=== PATIENT | female | born 1985 | race Caucasian/White ===

== ENCOUNTER 2019-04-02 10:53 | Emergency (ER) | payer SELFPAY ==
[2019-04-02] MEDS ORDERED: ONDANSETRON HCL INJ/PF 4 MG/2 ML SDV IV ONE (11:35)
[2019-04-02] MEDS ORDERED: NORMAL SALINE 1000 ML 1,000 ML IV ONE (11:35)
--- NOTE | 2019-04-02 11:38 | ER Document Report ---
ED Medical Screen (RME) - General Chief Complaint: Vomiting/Diarrhea Stated Complaint: NAUSEA/VOMITING Time Seen by Provider: 04/02/19 11:25 Mode of Arrival: Ambulatory Information source: Patient Notes: HPI: 33-year-old female sent here by the [facility] for concern of elevated blood pressure and tachycardia for the last day. Patient states she has chronic vomiting and diarrhea and stomach pain. She also states she has chronic headaches. Her symptoms are worse since Monday when she was admitted there for detox for alcohol, Percocet, Vicodin, and Valium. She states she also has the shakes. She denies prior history of DTs or alcohol withdrawal seizures. She does take trazodone, BuSpar, Neurontin. She states she has hypothyroidism depression anemia. She denies any chest pain. She states her blood pressures were running 160s and 140 systolic so they sent her to have an EKG, labs and fluids.She also states about 4 days ago she punched something several times with bilateral fists and requests bilateral hand x-rays. no numbness or tingling. No pain anywhere else. ROS neg to include 10 systems, unless mentioned in the hpi. PE:>>>> PHYSICAL_EXAM: GENERAL_APPEARANCE: well_nourished, alert, cooperative, no_acute_distress, no_obvious_discomfort. pleasant, thin young white female who appears slightly older than stated age, smiling, speaking in full sentences, in no sign of pain or resp distress, VITALS: reviewed, see vital signs table. HEAD: no_swelling\tenderness on the head. normocephalic. atraumatic. no ulloa signs. no raccoons eyes. EYES: PERRL, EOMI, conjunctiva_clear. NOSE: no_nasal_discharge. MOUTH: (-)decreased moisture. THROAT: no_tonsilar_inflammation, no_airway_obstruction. no_lymphadenopathy NECK: supple, no_neck_tenderness, full rom. full strength. BACK: no_back_tenderness. CHEST_WALL: no_chest_tenderness. no overlying skin changes LUNGS: no_wheezing, ctab (-)accessory muscle use, good air exchange bilateral. HEART: normal_rate, normal_rhythm, no_murmur, ABDOMEN: normal_BS, soft, no_abd_tenderness, (-)guarding, (-)rebound, no distension or peritoneal signs. no cva ttp EXTREMITIES: strength 5/5 in all_extremities, good pulses in all_extremities, no_swelling\tenderness in the extremities other than mild pain over bilateral hand, neg snuff box ttp, chronic deformity to right 4th knuckle, no_edema. full rom. normal gait. good pulses. brisk cap refill. good hand location manager. NEURO: motor and sensation intact, SKIN: warm, dry, good_color, no_rash. MENTAL_STATUS: speech_clear, oriented_X_3, normal_affect, responds_appropriately to questions. MDM: I have ordered labs and initial work-up and patient will be transferred to the main ER for further work-up. I have greeted and performed a rapid initial assessment of this patient. A comprehensive ED assessment and evaluation of the patient, analysis of test results and completion of medical decision making process will be conducted by an additional ED providers. Documentation achieved through voice recording which my lead to some occasional accidental typographical errors. Extensive efforts have been made to proof read documentation to make sure these are the least as possible Temp Pulse Resp BP Pulse Ox 04/02/19 11:11 98.4 F 105 H 15 106/59 L 99 Category Date Time Status EKG Documentation STAT Care 04/02/19 11:33 Active EKG Documentation STAT Care 04/02/19 11:34 Active Lock [Saline Lock (ED)] NOW Care 04/02/19 11:33 Active NPO (ED) NOW Care 04/02/19 11:33 Active CHEST 2 VIEWS [RAD] Stat Exams 04/02/19 11:33 Ordered HAND BILATERAL 3 VIEWS [RAD] Stat Exams 04/02/19 11:34 Ordered ALCOHOL [CHEM] Stat Lab 04/02/19 11:45 Received CBC WITH DIFF [HEME] Stat Lab 04/02/19 11:45 Received COMPREHENSIVE METABOLIC PANEL [CHEM] Stat Lab 04/02/19 11:45 Received FREE T3 [CHEM] Stat Lab 04/02/19 11:45 Received HCG QUALITATIVE, URINE [URIN] Stat Lab 04/02/19 11:40 Received LIPASE [CHEM] Stat Lab 04/02/19 11:45 Received MAGNESIUM [CHEM] Stat Lab 04/02/19 11:45 Received NT PRO BNP [CHEM] Stat Lab 04/02/19 11:45 Received T4 [FREE T4 (FREE THYROXINE)] [CHEM] Stat Lab 04/02/19 11:45 Received THYROID STIMULATING HORMONE [CHEM] Stat Lab 04/02/19 11:45 Received TROPONIN I [CHEM] Stat Lab 04/02/19 11:45 Received URINALYSIS [URIN] Stat Lab 04/02/19 11:40 Received URINE DRUG SCREEN [CHEM] Stat Lab 04/02/19 11:40 Received Normal Saline 1000 ml [NaCl 0.9% 1000 ml IV Soln] 1,000 Med 04/02/19 11:35 Discontinued ml IV BOLUS Ondansetron HCl/Pf [Zofran Inj/Pf 4 mg/2 ml Sdv] Med 04/02/19 11:35 Discontinued 4 mg IV NOW ONE EKG ER ONLY [ER] Stat Oth 04/02/19 Ordered TRAVEL OUTSIDE OF THE [place] IN LAST 30 DAYS: No - Related Data Allergies/Adverse Reactions: No Known Allergies Allergy (Verified 04/02/19 10:58) Past Medical History - Social History Frequency of alcohol use: Heavy Drug Abuse: Prescription drugs Renal/ Medical History: Denies: Hx Peritoneal Dialysis Psychiatric Medical History: Reports: Hx Depression Physical Exam - Vital signs Vitals: Temp Pulse Resp BP Pulse Ox 98.4 F 105 H 15 106/59 L 99 04/02/19 11:11 04/02/19 11:11 04/02/19 11:11 04/02/19 11:11 04/02/19 11:11 Course - Vital Signs Vital signs: Temp Pulse Resp BP Pulse Ox 98.4 F 105 H 15 106/59 L 99 04/02/19 11:11 04/02/19 11:11 04/02/19 11:11 04/02/19 11:11 04/02/19 11:11 - Laboratory Result Diagrams: 04/02/19 11:45 04/02/19 11:45
[2019-04-02 12:14] LABS: ABSOLUTE EOSINOPHILS # (AUTO) 0.1 10^3/uL (0.0-0.6); ABSOLUTE LYMPHOCYTES (AUTO) 0.9 10^3/uL (0.5-4.7); ABSOLUTE MONOCYTES (AUTO) 0.5 10^3/uL (0.1-1.4); BASOPHILS % (AUTO) 0.9 % (0-2); EOSINOPHILS % (AUTO) 2.5 % (0-6); HEMATOCRIT 29.5 % (36.0-47.0); LYMPHOCYTES % (AUTO) 25.7 % (13-45); MEAN CORPUSCULAR HEMOGLOBIN 33.1 pg (27.0-33.4); MEAN CORPUSCULAR HGB CONC 33.9 g/dL (32.0-36.0); MEAN CORPUSCULAR VOLUME 98 fl (80-97); MONOCYTES % (AUTO) 15.1 % (3-13); PLATELET COUNT 285 10^3/uL (150-450); RED BLOOD COUNT 3.01 10^6/uL (3.72-5.28); RED CELL DISTRIBUTION WIDTH 17.7 % (11.5-14.0); SEGMENTED NEUTROPHILS % (AUTO) 55.8 % (42-78); TOTAL CELLS COUNTED % (AUTO) 100 %; WHITE BLOOD COUNT 3.6 10^3/uL (4.0-10.5)
[2019-04-02 12:25] LABS: APPEARANCE,URINE CLEAR; BILIRUBIN,URINE NEGATIVE (NEGATIVE); COLOR,URINE YELLOW; GLUCOSE, URINE NEGATIVE (NEGATIVE); KETONES,URINE NEGATIVE (NEGATIVE); LEUKOCYTE ESTERASE,URINE NEGATIVE (NEGATIVE); NITRITE,URINE NEGATIVE (NEGATIVE); PROTEIN,URINE NEGATIVE (NEGATIVE); URINE SPECIFIC GRAVITY 1.002; UROBILINOGEN,URINE NEGATIVE mg/dL (<2.0)
[2019-04-02 12:33] LABS: ALCOHOL < 10 mg/dL (NONE DETECTED)
[2019-04-02 12:34] LABS: ALBUMIN 3.5 g/dL (3.5-5.0); ALKALINE PHOSPHATASE 111 U/L (38-126); ANION GAP 6 (5-19); ASPARTATE AMINO TRANSFERASE 54 U/L (14-36); BILIRUBIN,DIRECT 0.2 mg/dL (0.0-0.4); BILIRUBIN,TOTAL 0.3 mg/dL (0.2-1.3); BLOOD UREA NITROGEN < 2 mg/dL (7-20); CALCIUM 8.7 mg/dL (8.4-10.2); CARBON DIOXIDE 28 mmol/L (22-30); CHLORIDE 95 mmol/L (98-107); GLUCOSE 75 mg/dL (75-110); POTASSIUM 4.6 mmol/L (3.6-5.0); TOTAL PROTEIN 6.5 g/dL (6.3-8.2)
[2019-04-02 12:43] LABS: URINE AMPHETAMINES SCREEN NEGATIVE; URINE BARBITURATES SCREEN NEGATIVE; URINE BENZODIAZEPINES SCREEN NEGATIVE; URINE COCAINE SCREEN NEGATIVE; URINE MARIJUANA (THC) SCREEN NEGATIVE; URINE METHADONE SCREEN NEGATIVE; URINE PHENCYCLIDINE SCREEN NEGATIVE
[2019-04-02 13:03] LABS: NT PRO BNP 217 pg/mL (<125); TROPONIN I < 0.012 ng/mL
[2019-04-02 13:12] LABS: FREE T3 3.37 pg/mL (2.77-5.27); FREE T4 (FREE THYROXINE) 0.67 ng/dL (0.78-2.19)
[2019-04-02 13:26] LABS: THYROID STIMULATING HORMONE 8.77 uIU/mL (0.47-4.68)
--- NOTE | 2019-04-02 13:46 | RADIOLOGY REPORT (SQ) ---
EXAM DESCRIPTION: CHEST 2 VIEWS COMPLETED DATE/TIME: 04/02/2019 1:16 pm REASON FOR STUDY: elevated bp, tachy COMPARISON: None. EXAM PARAMETERS: NUMBER OF VIEWS: two views TECHNIQUE: Digital Frontal and Lateral radiographic views of the chest acquired. RADIATION DOSE: NA LIMITATIONS: none FINDINGS: LUNGS AND PLEURA: No opacities, masses or pneumothorax. No pleural effusion. MEDIASTINUM AND HILAR STRUCTURES: No masses or contour abnormalities. HEART AND VASCULAR STRUCTURES: Heart normal size. No evidence for failure. BONES: No acute findings. HARDWARE: None in the chest. OTHER: No other significant finding. IMPRESSION: NO ACUTE RADIOGRAPHIC FINDING IN THE CHEST. TECHNICAL DOCUMENTATION: JOB ID: [id number] [email or web address]- All Rights Reserved Reading location - IP/workstation name: [email or web address]
--- NOTE | 2019-04-02 13:48 | RADIOLOGY REPORT (SQ) ---
EXAM DESCRIPTION: HAND BILATERAL 3 VIEWS COMPLETED DATE/TIME: 04/02/2019 1:16 pm REASON FOR STUDY: punched something several times COMPARISON: None. EXAM PARAMETERS: NUMBER OF VIEWS: Three views. TECHNIQUE: AP, lateral and oblique radiographic images acquired of the right and left hand. LIMITATIONS: None. FINDINGS: MINERALIZATION: Normal. BONES: No acute fracture or dislocation. No worrisome bone lesions. Dysmorphic distal left radius a nd ulna likely from remote trauma with plate and screw fixation hardware. Dysmorphic 4th right metac arpal, likely posttraumatic. JOINTS: No effusions. SOFT TISSUES: No soft tissue swelling. No foreign body. OTHER: Distal plate and screw fixation hardware of the distal left radius. IMPRESSION: No definite acute bony abnormality. Dysmorphic distal left radius and ulna with prior plate and screw surgical fixation and dysmorphic ri ght 4th metacarpal, likely related to remote trauma. TECHNICAL DOCUMENTATION: JOB ID: [id number] [email or web address]- All Rights Reserved Reading location - IP/workstation name: [email or web address]
[2019-04-02 14:38] VITALS: BP 104/62
--- NOTE | 2019-04-02 14:43 | ER Document Report ---
ED General - General Chief Complaint: Vomiting/Diarrhea Stated Complaint: NAUSEA/VOMITING Time Seen by Provider: 04/02/19 11:25 Mode of Arrival: Ambulatory Information source: Patient Notes: 33-year-old female presented to ED for concern for elevated blood pressure and elevated pulse as well as nausea and vomiting for the last 2 days and pain to her hands. She was in the detox center and they sent her to the emergency room to be examined and returned to the detox center. She states she does have hypothyroid depression anemia. She states that the detox center they told her her blood pressure was running in the 160s 170s her "blood pressure when I discharged her was 104/62. They states that her pulse was very fast for when I took her pulse it was 81. She states she also had some pain in her hand after she punched something. There was no acute injuries noted to the hand. TRAVEL OUTSIDE OF THE [place] IN LAST 30 DAYS: No - HPI Onset: Other Onset/Duration: Intermittent Quality of pain: Achy, Sharp Severity: Moderate Pain Level: 4 Associated symptoms: Nausea, Vomiting, Other - Pain to both hands, elevated blood pressure elevated pulse at the detox center Exacerbated by: Movement Relieved by: Denies Similar symptoms previously: Yes Recently seen / treated by doctor: Yes - Related Data Allergies/Adverse Reactions: No Known Allergies Allergy (Verified 04/02/19 10:58) Past Medical History - General Information source: Patient - Social History Smoking Status: Current Every Day Smoker Cigarette use (# per day): Yes Smoking Education Provided: Yes - 4 minutes Frequency of alcohol use: Heavy Drug Abuse: Prescription drugs Lives with: Other - And detox center right now Family History: Reviewed & Not Pertinent Patient has suicidal ideation: No Patient has homicidal ideation: No - Past Medical History Cardiac Medical History: Reports: None Pulmonary Medical History: Reports: None EENT Medical History: Reports: None Neurological Medical History: Reports: None Endocrine Medical History: Reports: None Renal/ Medical History: Reports: None Malignancy Medical History: Reports: None GI Medical History: Reports: None Musculoskeletal Medical History: Reports Hx Musculoskeletal Trauma Skin Medical History: Reports None Psychiatric Medical History: Reports: Hx Anxiety, Hx Depression, Other - Alcoholism Traumatic Medical History: Reports: None Infectious Medical History: Reports: None Surgical Hx: Negative Past Surgical History: Reports: None - Immunizations Immunizations up to date: Yes Review of Systems - Review of Systems Constitutional: No symptoms reported EENT: No symptoms reported Cardiovascular: No symptoms reported Respiratory: No symptoms reported Gastrointestinal: Nausea, Vomiting Genitourinary: No symptoms reported Female Genitourinary: No symptoms reported Musculoskeletal: Other - Bilateral hand pain Skin: No symptoms reported Hematologic/Lymphatic: No symptoms reported Neurological/Psychological: No symptoms reported -: Yes All other systems reviewed and negative Physical Exam - Vital signs Vitals: Temp Pulse Resp BP Pulse Ox 98.4 F 105 H 15 106/59 L 99 04/02/19 11:11 04/02/19 11:11 04/02/19 11:11 04/02/19 11:11 04/02/19 11:11 Interpretation: Normal - General General appearance: Appears well, Alert - HEENT Head: Normocephalic, Atraumatic Eyes: Normal Pupils: PERRL Ears: Normal External canal: Normal Tympanic membrane: Normal Sinus: Normal Nasal: Normal Mouth/Lips: Normal Mucous membranes: Normal Pharynx: Normal Neck: Normal - Respiratory Respiratory status: No respiratory distress Chest status: Nontender Breath sounds: Normal Chest palpation: Normal - Cardiovascular Rhythm: Regular Heart sounds: Normal auscultation Murmur: No - Abdominal Inspection: Normal Distension: No distension Bowel sounds: Normal Tenderness: Nontender Organomegaly: No organomegaly - Back Back: Normal, Nontender - Extremities General upper extremity: Normal color, Normal ROM, Normal temperature General lower extremity: Normal inspection, Nontender, Normal color, Normal ROM, Normal temperature, Normal weight bearing. No: Franc's sign Hand: Tender, Ecchymosis, No evidence of human bite, No evidence of FB - Neurological Neuro grossly intact: Yes Cognition: Normal Orientation: AAOx4 Brimfield Coma Scale Eye Opening: Spontaneous Lissett Coma Scale Verbal: Oriented Br[place]field Coma Scale Motor: Obeys Commands Lissett Coma Scale Total: 15 Speech: Normal Motor strength normal: LUE, RUE, LLE, RLE Sensory: Normal - Psychological Associated symptoms: Normal affect, Normal mood - Skin Skin Temperature: Warm Skin Moisture: Dry Skin Color: Normal Course - Re-evaluation Re-evalutation: 04/03/19 02:37 Copy of x-rays and lab results reports given to patient to take to the detox center. Patient's blood pressure was within normal limits pulse within normal limits she was talking freely there is no acute injuries to her hands. - Vital Signs Vital signs: Temp Pulse Resp BP Pulse Ox 97.5 F 81 18 104/62 100 04/02/19 14:39 04/02/19 14:39 04/02/19 14:31 04/02/19 14:31 04/02/19 14:31 - Laboratory Result Diagrams: 04/02/19 11:45 04/02/19 11:45 Laboratory results interpreted by me: 04/02/19 04/02/19 04/02/19 11:40 11:45 11:45 WBC 3.6 L RBC 3.01 L Hgb 10.0 L Hct 29.5 L MCV 98 H RDW 17.7 H Monocytes % 15.1 H Sodium 129.4 L Chloride 95 L BUN < 2 L AST 54 H NT-Pro-B Natriuret Pep TSH Free T4 Urine Blood MODERATE H 04/02/19 04/02/19 11:45 11:45 WBC RBC Hgb Hct MCV RDW Monocytes % Sodium Chloride BUN AST NT-Pro-B Natriuret Pep 217 H TSH 8.77 H Free T4 0.67 L Urine Blood - Diagnostic Test Radiology reviewed: Image reviewed, Reports reviewed Discharge - Discharge Clinical Impression: Concerns at detox center Nausea and vomiting Qualifiers: Vomiting type: unspecified Vomiting Intractability: unspecified Qualified Code(s): R11.2 - Nausea with vomiting, unspecified Condition: Stable Disposition: HOME, SELF-CARE Additional Instructions: Patient was seen today due to concerns at the detox crisis center for elevated blood pressure tachycardia for the last day. Her pulse at discharge was 81 regular. Her blood pressure was 104/62 this is after she got up and moved around. Her O2 sat was 100% respirations were 20 and her temperature was 97.5. She needs to decrease the amount of coffee she is drinking because she states she is drinking 6 to 8 cups of coffee a day she needs to drink more juice or water and less coffee as this will make her have a high pulse and blood pressure. She is slightly hypothyroid and she needs to be followed up with her primary doctor to treat this condition it is not enough for us to start medications in the emergency room. She states she has been nauseated and yeller treating her nausea with medications at the detox center. She states she has not been nauseated or vomiting today and she has received some Zofran and fluids in the emergency room. FOLLOW-UP CARE: If you have been referred to a physician for follow-up care, call the physicians office for an appointment as you were instructed or within the next two days. If you experience worsening or a significant change in your symptoms, notify the physician immediately or return to the Emergency Department at any time for re-evaluation.
--- NOTE | 2019-04-03 14:38 | EKG REPORT ---
SEVERITY:- NORMAL ECG - SINUS RHYTHM : Confirmed by: Carlos Guzman 03-Apr-2019 14:37:22
== END 2019-04-02 14:50 | disposition home or self-care (01) ==
LOC: ER 10:53
DX: R11.2 Nausea with vomiting, unspecified (principal); M79.641 Pain in right hand; M79.642 Pain in left hand; X58.XXXA Exposure to other specified factors, initial encounter; R58 Hemorrhage, not elsewhere classified; F19.10 Other psychoactive substance abuse, uncomplicated; F17.210 Nicotine dependence, cigarettes, uncomplicated; Z71.6 Tobacco abuse counseling
CPT/HCPCS: 93005; 36415; 84439; 80307 ×2; 83690; 83735; 84443; 85025; 81025; 80053; 81001; 84484; 84481; 83880; 71046; 73130; 93010; J2405; J7030; 96361; 96374; 99284

== ENCOUNTER 2019-07-03 23:10 | Emergency (ER) | payer SELFPAY ==
[2019-07-04] MEDS ORDERED: NORMAL SALINE 1000 ML 1,000 ML IV ONE (00:28)
--- NOTE | 2019-07-04 01:53 | RADIOLOGY REPORT (SQ) ---
Right hand three view on 07/04/2019 at 1:13 AM CLINICAL INDICATION: Punched ground, pain COMPARISON: 04/02/2019 FINDINGS: There is again noted a shortened fourth metacarpal that may be congenital or related to old trauma. Ulnar minus variant is noted. Soft tissue swelling is noted in the dorsum of the hand overlying the distal metacarpals. There are no fractures. Visualized joints are well aligned. IMPRESSION: No acute bony abnormality.
--- NOTE | 2019-07-04 05:31 | ER Document Report ---
ED General - General Chief Complaint: Medical Clearance Stated Complaint: MEDICAL CLEARANCE, ETOH Time Seen by Provider: 07/04/19 00:16 Primary Care Provider: ALINA MCKEON [Primary Care Provider] - Follow up as needed Notes: Pt is a 33 y/o female presents to the emergency department for alcohol detox. States she drank over 12 beers and took 2 shots of vodka tonight. States she went to [facility] and "blew a .32" and they would not accept her. Pt. voices she did punched the concrete floor and skinned her right hand because she was upset about not being able to get into detox. RN note states the Pt has been vomiting and is nauseated, although she denies this to me. Pt. denies CP, SOB, headache, or other injuries. TRAVEL OUTSIDE OF THE [place] IN LAST 30 DAYS: No - Related Data Allergies/Adverse Reactions: No Known Allergies Allergy (Verified 04/02/19 10:58) Home Medications: ibuprofen Past Medical History - General Information source: Patient - Social History Smoking Status: Current Every Day Smoker Frequency of alcohol use: 12-24 beers daily w/shots Family History: Reviewed & Not Pertinent Patient has suicidal ideation: No Patient has homicidal ideation: No Renal/ Medical History: Denies: Hx Peritoneal Dialysis Musculoskeletal Medical History: Reports Hx Musculoskeletal Trauma Psychiatric Medical History: Reports: Hx Anxiety, Hx Depression - Immunizations Immunizations up to date: Yes Review of Systems - Review of Systems Constitutional: denies: Fever EENT: No symptoms reported Cardiovascular: No symptoms reported Respiratory: No symptoms reported Gastrointestinal: No symptoms reported Genitourinary: No symptoms reported Female Genitourinary: No symptoms reported Musculoskeletal: See HPI Skin: See HPI Hematologic/Lymphatic: No symptoms reported Neurological/Psychological: See HPI Physical Exam - Vital signs Vitals: Temp Pulse BP Pulse Ox 97.6 F 87 110/98 H 100 07/03/19 23:14 07/03/19 23:14 07/03/19 23:14 07/03/19 23:14 - Notes Notes: GENERAL: Alert, interacts well. No acute distress. HEAD: Normocephalic, atraumatic. EYES: Pupils equal, round, and reactive to light. Extraocular movements intact. ENT: Oral mucosa moist, tongue midline. NECK: Full range of motion. Supple. Trachea midline. LUNGS: Clear to auscultation bilaterally, no wheezes, rales, or rhonchi. No respiratory distress. HEART: Regular rate and rhythm. No murmur ABDOMEN: Soft, non-tender. Non-distended. Bowel sounds present in all 4 quadrants. EXTREMITIES: Moves all 4 extremities spontaneously. No edema, normal radial and dorsalis pedis pulses bilaterally. No cyanosis. slight ecchymosis noted to right MCP joint index finger, middle finger. Full range of motion all fingers on the right hand. BACK: no cervical, thoracic, lumbar midline tenderness. No saddle anesthesia, normal distal neurovascular exam. NEUROLOGICAL: Alert and oriented x3. Normal speech. cranial nerves II through XII grossly intact. PSYCH: Normal affect, normal mood. SKIN: Warm, dry, normal turgor. Course - Re-evaluation Re-evalutation: Patient is conscious alert and oriented x4 upon arrival to the emergency department. She is answering questions appropriately. She is denying any suicidal homicidal ideations. States her tetanus immunization is up-to-date. Patient voices she would like to get help for drinking. States "I know it is a problem." Laboratory 07/04/19 07/04/19 00:44 04:43 Serum Alcohol 269 163 Hand X-Ray 07/04/19 00:39 IMPRESSION: No acute bony abnormality. Patient's serum alcohol has gone from 269-163. [facility] will take the patient for alcohol level is below 200. Patient continues to be alert and oriented x4. She will be discharged to then go to detox. - Vital Signs Vital signs: Temp Pulse Resp BP Pulse Ox 98.4 F 94 20 120/60 98 07/04/19 05:33 07/04/19 05:33 07/04/19 05:33 07/04/19 05:33 07/04/19 05:33 Discharge - Discharge Clinical Impression: Alcohol intoxication Qualifiers: Complication of substance-induced condition: uncomplicated Qualified Code(s): F10.920 - Alcohol use, unspecified with intoxication, uncomplicated Injury of right hand Qualifiers: Encounter type: initial encounter Qualified Code(s): S69.91XA - Unspecified injury of right wrist, hand and finger(s), initial encounter Condition: Stable Disposition: OTHER Instructions: Acute Alcohol Intoxication ([facility]), Chronic Alcoholism ([facility]) Additional Instructions: You have been seen and treated in the emergency department for your alcohol i ntoxication. Please make sure you go to [facility] for continued care. please return to the emergency department for any concerns. Referrals: [facility]ATIONS,RECOVERY [Primary Care Provider] - Follow up as needed
[2019-07-04 05:39] VITALS: BP 120/60
== END 2019-07-04 05:38 | disposition other institution (70) ==
LOC: ER 23:10
DX: S60.511A Abrasion of right hand, initial encounter (principal); F10.920 Alcohol use, unspecified with intoxication, uncomplicated; R11.2 Nausea with vomiting, unspecified; X58.XXXA Exposure to other specified factors, initial encounter; F17.210 Nicotine dependence, cigarettes, uncomplicated
CPT/HCPCS: 36415; 80307; 73130; J7030

== ENCOUNTER 2019-07-25 22:22 | Emergency (ER) | payer SELFPAY ==
--- NOTE | 2019-07-25 22:57 | ER Document Report ---
ED Medical Screen (RME) - General Stated Complaint: ETOH Time Seen by Provider: 07/25/19 22:48 Primary Care Provider: ALINA MCKEON [Primary Care Provider] - Follow up as needed Mode of Arrival: Ambulatory Information source: Patient, Relative - Notes: 33-year-old female with longstanding alcoholism and drug abuse presenting to the emergency department with request for detox. Patient's brought her from another critical access hospital to go to [facility] however they cannot take her as her blood alcohol level was too high on the breathalyzer. Her brought her here. But alcohol level needs to be less than 200 for the [facility] to accept her. Her blood alcohol level was apparently 0.38 just prior to arrival. She denies any current suicidal ideations however her at the bedside does report that over the last week she has had passive suicidal thoughts. Exam: Patient with very heightened anxiety, pacing around the room. Currently denies any suicidal or homicidal ideations. I have greeted and performed a rapid initial assessment of this patient. A comprehensive ED assessment and evaluation of the patient, analysis of test results and completion of the medical decision making process will be conducted by additional ED providers. I have specifically instructed the patient or family members with the patient to immediately return to any nursing staff should anything change in the patient's condition or with their chief complaint. This medical record was dictated with voice recognizing software. There may be grammatical, syntax errors that are unintended. TRAVEL OUTSIDE OF THE [place] IN LAST 30 DAYS: No - Related Data Allergies/Adverse Reactions: No Known Allergies Allergy (Verified 04/02/19 10:58) Home Medications: none Past Medical History - Social History Chew tobacco use (# tins/day): No Frequency of alcohol use: Heavy Drug Abuse: Cocaine, Marijuana, Methamphetamine Renal/ Medical History: Denies: Hx Peritoneal Dialysis Musculoskeltal Medical History: Reports Hx Musculoskeletal Trauma Psychiatric Medical History: Reports: Hx Anxiety, Hx Depression - Immunizations Immunizations up to date: Yes Physical Exam - Vital signs Vitals: Temp Pulse Resp BP Pulse Ox 97.4 F 108 H 20 131/59 H 98 07/25/19 22:38 07/25/19 22:38 07/25/19 22:38 07/25/19 22:38 07/25/19 22:38 Course - Vital Signs Vital signs: Temp Pulse Resp BP Pulse Ox 97.4 F 108 H 20 131/59 H 98 07/25/19 22:44 07/25/19 22:44 07/25/19 22:44 07/25/19 22:44 07/25/19 22:44 Doctor's Discharge - Discharge Referrals: INNOVATIONS,RECOVERY [Primary Care Provider] - Follow up as needed
[2019-07-26 00:08] LABS: ABSOLUTE BASOPHILS # (AUTO) 0.1 10^3/uL (0.0-0.2); ABSOLUTE EOSINOPHILS # (AUTO) 0.1 10^3/uL (0.0-0.6); ABSOLUTE LYMPHOCYTES (AUTO) 1.5 10^3/uL (0.5-4.7); ABSOLUTE MONOCYTES (AUTO) 0.4 10^3/uL (0.1-1.4); ABSOLUTE NEUT (AUTO) 2.7 10^3/uL (1.7-8.2); BASOPHILS % (AUTO) 1.1 % (0-2); EOSINOPHILS % (AUTO) 1.9 % (0-6); HEMATOCRIT 37.7 % (36.0-47.0); HEMOGLOBIN 12.6 g/dL (12.0-15.5); LYMPHOCYTES % (AUTO) 31.9 % (13-45); MEAN CORPUSCULAR HEMOGLOBIN 30.5 pg (27.0-33.4); MEAN CORPUSCULAR HGB CONC 33.4 g/dL (32.0-36.0); MEAN CORPUSCULAR VOLUME 91 fl (80-97); MONOCYTES % (AUTO) 8.8 % (3-13); PLATELET COUNT 279 10^3/uL (150-450); RED BLOOD COUNT 4.13 10^6/uL (3.72-5.28); RED CELL DISTRIBUTION WIDTH 17.1 % (11.5-14.0); SEGMENTED NEUTROPHILS % (AUTO) 56.3 % (42-78); TOTAL CELLS COUNTED % (AUTO) 100 %; WHITE BLOOD COUNT 4.8 10^3/uL (4.0-10.5)
[2019-07-26 00:22] LABS: ACETAMINOPHEN < 10 ug/mL (10-30); ALBUMIN 4.1 g/dL (3.5-5.0); ALKALINE PHOSPHATASE 85 U/L (38-126); ANION GAP 13 (5-19); ASPARTATE AMINO TRANSFERASE 64 U/L (14-36); BILIRUBIN,DIRECT 0.2 mg/dL (0.0-0.4); BILIRUBIN,TOTAL 0.3 mg/dL (0.2-1.3); BLOOD UREA NITROGEN 5 mg/dL (7-20); CALCIUM 8.8 mg/dL (8.4-10.2); CARBON DIOXIDE 23 mmol/L (22-30); CHLORIDE 97 mmol/L (98-107); GLUCOSE 82 mg/dL (75-110); POTASSIUM 4.4 mmol/L (3.6-5.0); SALICYLATE 1.6 mg/dL (2.0-20.0); TOTAL PROTEIN 7.3 g/dL (6.3-8.2)
[2019-07-26 00:35] LABS: ALCOHOL 327 mg/dL (NONE DETECTED)
[2019-07-26 01:11] LABS: APPEARANCE,URINE CLEAR; BILIRUBIN,URINE NEGATIVE (NEGATIVE); COLOR,URINE STRAW; GLUCOSE, URINE NEGATIVE (NEGATIVE); KETONES,URINE NEGATIVE (NEGATIVE); LEUKOCYTE ESTERASE,URINE NEGATIVE (NEGATIVE); NITRITE,URINE NEGATIVE (NEGATIVE); PROTEIN,URINE NEGATIVE (NEGATIVE); URINE SPECIFIC GRAVITY 1.006; UROBILINOGEN,URINE NEGATIVE mg/dL (<2.0)
[2019-07-26 01:28] LABS: URINE AMPHETAMINES SCREEN NEGATIVE; URINE BARBITURATES SCREEN NEGATIVE; URINE BENZODIAZEPINES SCREEN NEGATIVE; URINE COCAINE SCREEN NEGATIVE; URINE MARIJUANA (THC) SCREEN NEGATIVE; URINE METHADONE SCREEN NEGATIVE; URINE PHENCYCLIDINE SCREEN NEGATIVE
[2019-07-26] MEDS ORDERED: PROMETHAZINE HCL INJ 25 MG/1 ML VIAL IM ONE (03:21)
--- NOTE | 2019-07-26 03:23 | ER Document Report ---
ED Substance Abuse / Acc. OD - General Chief Complaint: ETOH Abuse Stated Complaint: ETOH Time Seen by Provider: 07/25/19 22:48 Mode of Arrival: Ambulatory Notes: Patient is a 33-year-old female that comes to the emergency department for chief complaint of alcohol intoxication and wanting detox. She states that she was taken to detox on request by her , she states however at arrival she blew a 0.38 on the breathalyzer and therefore she was referred to the emergency department because she was too drunk to be admitted at that time. She denies any complaints otherwise, denies abdominal pain, vomiting, fever, difficulty breathing, injury. She states she does get shakes with withdrawals but she denies seizures or other symptoms. She states she has been successful detox in the past and has also been to detox within the past several months. She denies current recreational drugs. She denies SI or HI. TRAVEL OUTSIDE OF THE [place] IN LAST 30 DAYS: No - Related Data Allergies/Adverse Reactions: No Known Allergies Allergy (Verified 04/02/19 10:58) Home Medications: none Past Medical History - General Information source: Patient, Relative - - Social History Smoking Status: Current Every Day Smoker Chew tobacco use (# tins/day): No Frequency of alcohol use: Heavy Drug Abuse: Cocaine, Marijuana, Methamphetamine Family History: Reviewed & Not Pertinent Patient has suicidal ideation: Yes Patient has homicidal ideation: No Renal/ Medical History: Denies: Hx Peritoneal Dialysis Musculoskeletal Medical History: Reports Hx Musculoskeletal Trauma Psychiatric Medical History: Reports: Hx Anxiety, Hx Depression - Immunizations Immunizations up to date: Yes Review of Systems - Review of Systems Constitutional: See HPI EENT: No symptoms reported Cardiovascular: No symptoms reported Respiratory: No symptoms reported Gastrointestinal: No symptoms reported Genitourinary: No symptoms reported Female Genitourinary: No symptoms reported Musculoskeletal: No symptoms reported Skin: No symptoms reported Hematologic/Lymphatic: No symptoms reported Neurological/Psychological: See HPI Physical Exam - Vital signs Vitals: Temp Pulse Resp BP Pulse Ox 97.4 F 108 H 20 131/59 H 98 07/25/19 22:38 07/25/19 22:38 07/25/19 22:38 07/25/19 22:38 07/25/19 22:38 - Notes Notes: GENERAL: Sleeping but easily aroused, slurs words occasionally, appears mildly intoxicated. Cooperative. No signs of distress. HEAD: Normocephalic, atraumatic. EYES: Pupils equal, round, and reactive to light. Extraocular movements intact. ENT: Oral mucosa moist, tongue midline. Oropharynx unremarkable. Airway patent. LUNGS: Clear to auscultation bilaterally, no wheezes, rales, or rhonchi. No respiratory distress. HEART: Regular rate and rhythm. No murmur ABDOMEN: Soft, non-tender. Non-distended. Bowel sounds present in all 4 quadrants. GENITOURINARY: Deferred EXTREMITIES: Moves all 4 extremities spontaneously. No edema, normal radial and dorsalis pedis pulses bilaterally. No cyanosis. BACK: no cervical, thoracic, lumbar midline tenderness. No saddle anesthesia, normal distal neurovascular exam. Moves all extremities in full range of motion. NEUROLOGICAL: Alert and oriented x3. Normal speech. Cranial nerves II through XII grossly intact. PSYCH: Relaxed and cooperative SKIN: Warm, dry, normal turgor. No rashes or lesions noted. Course - Re-evaluation Re-evalutation: Patient cooperative, appears somewhat intoxicated, no signs of distress. Unremarkable vital signs. Work-up unremarkable as well except alcohol is greater than 300. She will require monitoring to be more sober in order for her to be placed in detox program. This is per their guidelines. I discussed this with patient, she states agreement with this plan, she does request something for nausea, she was given Phenergan and she slept well with this. Under evaluation patient awakened, reported she had a mild headache, this resolved with ibuprofen and famotidine. No additional complaints. On reevaluation she is well-appearing. Alcohol cycled and is 140s. Patient is medically cleared for placement in detox. She will be discharged to detox. Patient is not tachycardic, vomiting, or tremulous. Patient states appreciation and agreement. - Vital Signs Vital signs: Temp Pulse Resp BP Pulse Ox 98.4 F 90 19 145/67 H 98 07/26/19 06:59 07/26/19 06:59 12 06:59 12 06:59 07/26/19 06:59 - Laboratory Result Diagrams: 07/25/19 23:53 07/25/19 23:53 Laboratory results interpreted by me: 07/25/19 07/25/19 23:53 23:53 RDW 17.1 H Sodium 132.8 L Chloride 97 L BUN 5 L AST 64 H Salicylates 1.6 L Acetaminophen < 10 L Serum Alcohol 327 H* - EKG Interpretation by Me Additional EKG results interpreted by me: EKG shows sinus rhythm at a rate of 94, QTC 431, normal axis, no T wave inversions or ST segment changes in consecutive leads. Discharge - Discharge Clinical Impression: Alcohol intoxication Qualifiers: Complication of substance-induced condition: with unspecified complication Qualified Code(s): F10.929 - Alcohol use, unspecified with intoxication, unspecified Alcohol dependence Qualifiers: Substance use status: unspecified alcohol-induced disorder Qualified Code(s): F10.29 - Alcohol dependence with unspecified alcohol-induced disorder Condition: Stable Disposition: HOME, SELF-CARE Additional Instructions: You have been medically cleared for detox. Proceed to [facility] for detox. Return for any concerning symptoms including uncontrolled vomiting, fever, or any other concerning or worsening symptoms.
[2019-07-26] MEDS ORDERED: IBUPROFEN 600 MG TABLET PO ONE (05:34)
[2019-07-26] MEDS ORDERED: FAMOTIDINE 20 MG TABLET PO ONE (05:35)
[2019-07-26] MEDS ORDERED: LORAZEPAM 1 MG TABLET PO ONE (06:51)
[2019-07-26 07:04] VITALS: BP 145/67
--- NOTE | 2019-07-28 12:04 | EKG REPORT ---
SEVERITY:- NORMAL ECG - SINUS RHYTHM : Confirmed by: Shireen King MD 28-Jul-2019 12:03:20
== END 2019-07-26 07:38 | disposition home or self-care (01) ==
LOC: ER 22:22
DX: F10.229 Alcohol dependence with intoxication, unspecified (principal); Y90.8 Blood alcohol level of 240 mg/100 ml or more; F17.200 Nicotine dependence, unspecified, uncomplicated; F14.10 Cocaine abuse, uncomplicated; F12.10 Cannabis abuse, uncomplicated; F15.10 Other stimulant abuse, uncomplicated; R51 Headache
CPT/HCPCS: 93005; 99284; 96372; 36415; 80307 ×4; 85025; 81025; 80053; 81001; 93010; J2550